=== PATIENT | female | born 1985 ===

== ENCOUNTER 2018-10-09 12:59 | Emergency (ER) | payer MEDICAID ==
[2018-10-09 13:12] VITALS: BMI 37.2
[2018-10-09 13:15] VITALS: BP 117/80; PULSE 87; RESP 18; TEMP 99.3; O2SAT 99
--- NOTE | 2018-10-09 13:27 | C.PDOC ---
History Of Present Illness 33 year old female presents to the ED s/p trip and fall yesterday. Patient states that she was walking home and tripped on an uneven pavement and landed on her left knee. She felt discomfort on her left knee throughout the day and pain radiated to the left hip area. She describes the pain as a muscle spasm/charley horse. She took Tylenol PM for pain and woke up with pain. She comes here today for treatment. She is able to walk with a limp. She denies head injury, loss of consciousness, weakness, or numbness. - HPI Time Seen by Provider: 10/09/18 13:16 Chief Complaint (Nursing): Trauma History Per: Patient History/Exam Limitations: no limitations Onset/Duration Of Symptoms: Days (1) Injury Occurred (Timing): Days Ago: (1) Location Of Injury: Left: Hip, Knee - Fall Fall:Prior To Injury: Tripped Past Medical History Reviewed: Historical Data, Nursing Documentation, Vital Signs Vital Signs: Last Vital Signs Temp 99.3 F 10/09/18 13:12 Pulse 87 10/09/18 13:12 Resp 18 10/09/18 13:12 BP 117/80 10/09/18 13:12 Pulse Ox 99 10/09/18 13:12 Primary Care Provider: Non [facility] Provider, - Medical History PMH: Migraine Surgical History: No Surg Hx Family History: States: Unknown Family Hx - Social History Hx Alcohol Use: No Hx Substance Use: No - Immunization History Hx Tetanus Toxoid Vaccination: Yes Hx Influenza Vaccination: No Hx Pneumococcal Vaccination: Yes Review Of Systems Except As Marked, All Systems Reviewed And Found Negative. Musculoskeletal: Positive for: Leg Pain (left knee. left hip) Physical Exam - Physical Exam Appears: Well, Non-toxic, No Acute Distress Skin: Normal Color, Warm, Dry Head: Atraumatic, Normacephalic Neck: Normal ROM, Supple Chest: Symmetrical, No Deformity Respiratory: Other (Respirations regular and unlabored.) Extremity: Normal ROM (of the LLE but increased pain with ROM of the hip and knee.), Tenderness ( mild tenderness to the medial Left knee, left ankle nontender, mild tenderness to the left lateral hip), Capillary Refill (<2 seconds), No Deformity, Other (small abrasion to the left mid-knee, without bleeding.) Pulses: Left Dorsalis Pedis: Normal, Right Dorsalis Pedis: Normal Neurological/Psych: Oriented x3, Normal Speech, Normal Cognition, Normal Motor, Normal Sensation Gait: Other (limping) ED Course And Treatment O2 Sat by Pulse Oximetry: 99 (in RA) Pulse Ox Interpretation: Normal - Other Rad XRAY LEFT HIP/PELVIS X-Ray: Interpreted by Me, Viewed By Me Interpretation: No fracture or dislocation. XRAY LEFT KNEE X-Ray: Interpreted by Me, Viewed By Me Interpretation: No fracture or dislocation. Medical Decision Making Medical Decision Making: Impression: 33 year old female presents to the ED s/p trip and fall yesterday. Initial Plan: Left knee x-ray ordered Left hip x-ray ordered Flexeril PO Toradol PO 1515 10/09/18 Xrays reviewed. No fracture. Patient updated on results. States pain is improved but spasm is still present. PO Valium ordered in addition. Able to ambulate. Will follow-up with PMD, orthopedist. Instructed on alternating between ice and heat to area of pain. Will return with any persistent or worsening symptoms. Disposition Counseled Patient/Family Regarding: Studies Performed, Diagnosis, Need For Followup, Rx Given - Disposition Referrals: Johnson Esquivel III, MD [Staff Provider] - FAMILY PROVIDER,NO [Family Provider] - Disposition: HOME/ ROUTINE Disposition Time: 15:17 Condition: GOOD Additional Instructions: Alternate between ice and heat to area of pain. Return if symptoms worsen or persist. Followup with your doctor and orthopedist. Return if symptoms worsen or persist. 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 (Deidre Hilton) - Scribe Statement The provider has reviewed the documentation as recorded by the Scribe (Deidre Hilton) All medical record entries made by the Scribe were at my direction and personally dictated by me. I have reviewed the chart and agree that the record accurately reflects my personal performance of the history, physical exam, medical decision making, and the department course for this patient. I have also personally directed, reviewed, and agree with the discharge instructions and disposition.
--- NOTE | 2018-10-09 15:19 | RAD ---
Date of service: 10/09/2018 PROCEDURE: Left Knee Radiographs. HISTORY: Pain. COMPARISON: None. TECHNIQUE: 2 views obtained. FINDINGS: BONES: Bone alignment and mineralization are normal. There is no acute displaced fracture or bone destruction. JOINTS: Normal. No osteoarthritis. JOINT EFFUSION: None. OTHER FINDINGS: None. IMPRESSION: No acute displaced fracture or dislocation.
--- NOTE | 2018-10-11 07:49 | RAD ---
PROCEDURE: Right Hip Radiographs. HISTORY: fall hip pain COMPARISON: None. TECHNIQUE: 2 views obtained. FINDINGS: BONES: Bone alignment and mineralization are normal. There is no acute displaced fracture or bone destruction. There is a 1.7 x 1.1 cm well-circumscribed round osteolytic lesion with lateral sclerotic margin and narrow zone of transition in the right iliac wing. JOINTS: Normal. SOFT TISSUES: Normal. OTHER FINDINGS: None. IMPRESSION: 1. No acute displaced fracture or dislocation. 2. 1.7 x 1.1 cm radiolucent lesion with lateral sclerotic margin and narrow zone of transition in the right iliac wing is indeterminate, the differential considerations include bone cyst, chondromatosis lesion amongst others. Correlation with CT scan without intravenous contrast on a nonemergent basis is recommended for further characterization. The final report is tagged to the PA review folder.
== END 2018-10-09 15:31 | disposition home or self-care (01) ==
LOC: C.ER 12:59
DX: S80.02XA Contusion of left knee, initial encounter (principal); S73.102A Unspecified sprain of left hip, initial encounter; W01.0XXA Fall on same level from slipping, tripping and stumbling without subsequent striking against object, initial encounter; Y93.01 Activity, walking, marching and hiking
CPT/HCPCS: 73502; 73560; 81025; 96372; 99284; J1885

== ENCOUNTER 2018-10-12 07:08 | Emergency (ER) | payer MEDICAID ==
[2018-10-12 07:09] VITALS: BMI 37.2
[2018-10-12 07:15] VITALS: RESP 20
--- NOTE | 2018-10-12 08:17 | C.PDOC ---
History Of Present Illness 33 year old female patient with history of HIV presents to the ER complain of painful rash on the left side of her hip and buttocks for x3 days. Patient reports she was seen in ER x3 days ago for a fall and developed the painful rash that same night. Patient denies any history of diabetes or hypertension. Patient is compliant with her HIV medications but lapse due to insurance complications which caused her CD4 to be slightly low. Patient is now back on the medication for x1 week. Patient denies any fever, chills, or any other associated symptoms or complaints at this time. Time Seen by Provider: 10/12/18 07:30 Chief Complaint (Nursing): Abnormal Skin Integrity History Per: Patient History/Exam Limitations: no limitations Onset/Duration Of Symptoms: Days (x3) Current Symptoms Are (Timing): Still Present Location Of Injury: Left: Buttock, Hip Quality Of Symptoms: Painful Past Medical History Reviewed: Historical Data, Nursing Documentation, Vital Signs Vital Signs: Last Vital Signs Temp 98.7 F 10/12/18 07:13 Pulse 94 H 10/12/18 07:13 Resp 20 10/12/18 07:13 BP 113/81 10/12/18 07:13 Pulse Ox 100 10/12/18 07:13 Primary Care Provider: Janay Prado - Medical History PMH: Migraine Family History: States: Unknown Family Hx - Social History Hx Alcohol Use: No Hx Substance Use: No - Immunization History Hx Tetanus Toxoid Vaccination: Yes Hx Influenza Vaccination: No Hx Pneumococcal Vaccination: Yes Review Of Systems Except As Marked, All Systems Reviewed And Found Negative. Constitutional: Negative for: Fever, Chills Skin: Positive for: Rash (on the left side of the hips and buttocks) Physical Exam - Physical Exam Appears: Non-toxic, No Acute Distress Skin: Warm, Dry, Rash (vesicular rash on the left coccyx region extending to the left buttock and lateral thigh in the dermtaome distribution: L3 and S4) Head: Atraumatic, Normacephalic Eye(s): bilateral: Normal Inspection, PERRL, EOMI Oral Mucosa: Moist Throat: No Erythema, No Exudate Neck: Normal ROM Chest: Symmetrical, No Deformity, No Tenderness Cardiovascular: Rhythm Regular, No Friction Rub, No Murmur Respiratory: Normal Breath Sounds, No Rales, No Rhonchi, No Wheezing Gastrointestinal/Abdominal: Soft, No Tenderness Back: No CVA Tenderness, No Vertebral Tenderness, No Paraspinal Tenderness Extremity: Normal ROM (x4), No Tenderness, No Swelling Neurological/Psych: Oriented x3, Normal Speech, Normal Motor Gait: Steady ED Course And Treatment O2 Sat by Pulse Oximetry: 100 (RA) Pulse Ox Interpretation: Normal Medical Decision Making Medical Decision Making: Plans: -- Famvir -- prednisone Disposition - Disposition Referrals: Janay Prado [Non-Staff] - Disposition: HOME/ ROUTINE Disposition Time: 09:30 Condition: GOOD Additional Instructions: Follow up with the infectious disease doctor within 1-2 days. Return if worsened. Prescriptions: Famciclovir [Famvir] 500 mg PO TID #21 tab Lidocaine/Aloe Vera [Aloe-Lidocaine 0.5% Gel] 227 gm TP BID #1 gel..gram. 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 - Scribe Statement The provider has reviewed the documentation as recorded by the Ibrahima Melgoza Do All medical record entries made by the Scribe were at my direction and personally dictated by me. I have reviewed the chart and agree that the record accurately reflects my personal performance of the history, physical exam, medical decision making, and the department course for this patient. I have also personally directed, reviewed, and agree with the discharge instructions and disposition.
[2018-10-12] MEDS ORDERED: Oxycodone/Acetaminophen 5/325 mg Tab PO STA (08:35)
[2018-10-12] MEDS ORDERED: Oxycodone/Acetaminophen 5/325 mg Tab ONE (08:48)
[2018-10-12 09:55] VITALS: BP 115/78; PULSE 84; TEMP 98.3
[2018-10-12 18:52] VITALS: O2SAT 100
== END 2018-10-12 10:00 | disposition home or self-care (01) ==
LOC: C.ER 07:08
DX: B02.9 Zoster without complications (principal)